=== PATIENT | female | born 1985 | race Caucasian/White ===

== ENCOUNTER 2024-08-13 14:36 | Emergency (ER) | payer SELFPAY ==
[~2024-08-13] VITALS: Ht 165.1 cm; Wt 91.0 kg
[2024-08-13 14:39] VITALS: TEMP 36.6; O2SAT 97
[2024-08-13] MEDS: DIPHENHYDRAMINE 50MG/ML VIAL IV ONE (15:36)
[2024-08-13] MEDS: EPINEPHRINE 1:1000 1 MG/ML AMP IM ONE (15:36)
[2024-08-13] MEDS: DEXAMETHASONE 10 MG/ML VIAL IV ONE (15:37)
[2024-08-13] MEDS: FAMOTIDINE 20MG/2ML VIAL IV ONE (15:37)
[2024-08-13] MEDS ORDERED: EPIN0.3P3 IM (17:01)
[2024-08-13 17:15] VITALS: BP 138/76; PULSE 84; RESP 17; O2SAT 95
== END 2024-08-13 17:25 | disposition home or self-care (01) ==
LOC: ER 14:36
DX: T78.2XXA Anaphylactic shock, unspecified, initial encounter (principal); X58.XXXA Exposure to other specified factors, initial encounter; Y93.89 Activity, other specified; Y92.89 Other specified places as the place of occurrence of the external cause; Y99.8 Other external cause status
CPT/HCPCS: 96372; 96374; 96375; 99284; J1100; J1200; J3490 ×2; Z7610 ×2